=== PATIENT | male | born 1990 | race Caucasian/White ===

== ENCOUNTER 2022-03-25 07:56 | Emergency (ER) | payer BC ==
[2022-03-25 08:11] VITALS: BP 100/60; PULSE 99; RESP 16; TEMP 98
[2022-03-25] MEDS ORDERED: BACITRACIN OINT 1 EACH PACKET TOPICAL ONE (08:38)
[2022-03-25] MEDS ORDERED: LIDOCAINE 2%-EPI 1:100,000 20 ML VIAL SQ STA (08:38)
[2022-03-25] MEDS ORDERED: DIPH,PERTUS(ACELL)TETVAC-LF 0.5 ML VIAL IM ONE (08:38)
--- NOTE | 2022-03-25 09:17 | ED ---
Wound/Laceration HPI - General Chief Complaint: Wound/Laceration Stated Complaint: L Hand Laceration Time Seen by Provider: 03/25/22 08:18 Source: patient, RN notes reviewed, old records reviewed Mode of arrival: ambulatory Limitations: no limitations - History of Present Illness Initial Comments: Patient is a 31-year-old male presenting to emergency Department with complaints of laceration to his left hand. Patient states he was using a box finisher to open a box when it slipped and he sliced the base of his left thumb. He states he was a lot of bleeding, he tied a cord around his wrist to act like a tourniquet. He is not on blood thinners. Bleeding is controlled at this time with pressure. Patient is unsure of his last tetanus vaccine. Patient has no further complaints. - Related Data Allergies Allergy/AdvReac Type Severity Reaction Status Date / Time No Known Allergies Allergy Verified 03/25/22 08:11 Review of Systems ROS Statement: Those systems with pertinent positive or pertinent negative responses have been documented in the HPI. ROS Other: All systems not noted in ROS Statement are negative. Past Medical History Past Medical History: No Reported History History of Any Multi-Drug Resistant Organisms: None Reported Past Surgical History: No Surgical Hx Reported Past Psychological History: No Psychological Hx Reported Smoking Status: Current every day smoker Past Alcohol Use History: None Reported Past Drug Use History: None Reported General Exam - General Exam Comments Initial Comments: GENERAL: Patient is well-developed and well-nourished. Patient is nontoxic and in no acute distress. HEAD: Atraumatic, normocephalic. EYES: Pupils equal round and reactive to light, extraocular movements intact, sclera anicteric, conjunctiva are normal. Eyelids were unremarkable. LUNGS: Unlabored respirations. Breath sounds clear to auscultation bilaterally and equal. No wheezes rales or rhonchi. HEART: Regular rate and rhythm without murmurs, rubs or gallops. MUSCULOSKELETAL: Normal extremities with adequate strength and normal range of motion, no pitting or edema. No clubbing or cyanosis. NEUROLOGICAL: Patient is alert and oriented x 3. Normal speech, normal gait. PSYCH: Normal mood, normal affect. SKIN: Warm, Dry, normal turgor, no rashes. Patient has a 5 cm laceration to the base of the left thumb mild active bleeding, controlled with pressure. Limitations: no limitations Course Vital Signs 03/25/22 08:09 Temperature 98 F Pulse Rate 99 Respiratory 16 Rate Blood Pressure 100/60 O2 Sat by Pulse 97 Oximetry Procedures - Laceration Laceration #1 Consent Obtained: verbal consent Indication: laceration Site: hand (Base of the left thumb) Size (cm): 5 Description: irregular Depth: simple, single layer Anesthetic Used: lidocaine 2%, with epi Anesthesia Technique: local infiltration Amount (mls): 6 Pre-repair: irrigated extensively Type of Sutures: nylon Size of Sutures: 4-0 Number of Sutures: 13 Technique: simple, interrupted Patient Tolerated Procedure: well, no complications Medical Decision Making - Medical Decision Making Patient is a 31-year-old male here with a 5 cm laceration to his left thumb after excellently slipping while using a box finisher. We did update his tetanus today. Patient's wound was cleaned, closed with 13, 4-0 sutures. He tolerated procedure well. Wound care were discussed, he'll have sutures removed in 7-10 days. All questions were answered. Stable for discharge. Return parameters were discussed. Disposition Clinical Impression: Laceration of left thumb Disposition: HOME SELF-CARE Condition: Stable Instructions (If sedation given, give patient instructions): Care For Your Stitches (ED) Additional Instructions: Please return to the Emergency Department if symptoms worsen or any other concerns. Stitches need to removed in 7-10 days. Keep area clean and dry. Keep covered while at work. Avoid heavy lifting with the left hand until sutures are removed. Is patient prescribed a controlled substance at d/c from ED?: No Referrals: None,Stated [Primary Care Provider] - 1-2 days Time of Disposition: 10:10
--- NOTE | 2022-03-25 09:36 | XR ---
EXAMINATION TYPE: XR hand limited LT DATE OF EXAM: 03/25/2022 COMPARISON: NONE HISTORY: 31-year-old male with laceration to base of thumb, pain TECHNIQUE: 2 views FINDINGS: Soft tissue swelling and soft tissue injury along the base of thumb. No retained radiopaque foreign body seen. No acute fracture, subluxation, dislocation. IMPRESSION: Soft tissue injury along the base of the thumb. No retained radiopaque foreign body or acute osseous abnormality seen.
== END 2022-03-25 10:28 | disposition home or self-care (01) ==
LOC: EC 07:56
DX: S61.012A Laceration without foreign body of left thumb without damage to nail, initial encounter (principal); F17.200 Nicotine dependence, unspecified, uncomplicated; W26.0XXA Contact with knife, initial encounter
CPT/HCPCS: 90715